=== PATIENT | male | born 1955 | race Caucasian/White ===

== ENCOUNTER 2018-05-01 11:11 | Inpatient (IN) | payer MEDICARE, OTHER ==
[~2018-05-01] VITALS: Ht 172.7 cm; Wt 63.9 kg
[2018-05-01] MEDS ORDERED: piperacillin/tazo 3.375gm/50ml 50 ML IV ONE (11:40)
[2018-05-01] MEDS ORDERED: normal saline 1000ML IV soln IV ONE (11:40)
[2018-05-01] MEDS ORDERED: vancomycin/NS 1 GM ADD-VANTAGE 250 ML IV ONE (11:40)
[2018-05-01 12:19] LABS: BASOPHILS % (AUTO) 0.4 % (0-1); EOSINOPHILS # (AUTO) 0.3 X10'3 (0-0.9); EOSINOPHILS % (AUTO) 2.3 % (0-6); HEMOGLOBIN 11.6 g/dl (14.0-17.9); LYMPHOCYTES % (AUTO) 8.7 % (21-51); MEAN CORPUSCULAR HEMOGLOBIN 32.4 PG (27.0-31.0); MEAN CORPUSCULAR HGB CONC 34.2 % (33.0-36.5); MEAN CORPUSCULAR VOLUME 94.9 FL (78-98); MONOCYTES # (AUTO) 0.7 X10'3 (0-0.9); MONOCYTES % (AUTO) 6.5 % (2-12); NEUTROPHILS # (AUTO) 9.4 X10'3 (1.8-7.7); NEUTROPHILS % (AUTO) 82.1 % (42-75); PLATELET COUNT 254 X10'3 (140-440); RED BLOOD COUNT 3.58 X10'6 (4.70-6.10); RED CELL DISTRIBUTION WIDTH 13.7 % (11.5-14.5); WHITE BLOOD COUNT 11.5 X10'3 (4.5-11.0)
[2018-05-01] MEDS ORDERED: iohexol 300mg/ml 100ml inj. ONE (12:21)
[2018-05-01 12:30] LABS: PARTIAL THROMBOPLASTIN TIME 27 SECONDS (22-32); PROTHROMBIN TIME 10.8 SECONDS (9.0-12.0)
[2018-05-01 12:35] LABS: ALANINE AMINOTRANSFERASE 29 U/L (12-78); ALBUMIN 2.6 G/DL (3.4-5.0); ALBUMIN/GLOBULIN RATIO 0.7 (1.1-1.5); ALKALINE PHOSPHATASE 69 IU/L (46-116); ANION GAP 8 (8-16); ASPARTATE AMINO TRANSFERASE 19 U/L (10-37); BILIRUBIN,TOTAL 0.5 MG/DL (0.1-1.0); BLOOD UREA NITROGEN 8 MG/DL (7-18); BUN/CREATININE RATIO 11.6 (5.4-32.0); CALCIUM 8.3 MG/DL (8.5-10.1); CHLORIDE 101 MMOL/L (99-107); CREATININE 0.69 MG/DL (0.60-1.10); GLUCOSE 106 MG/DL (70-104); MAGNESIUM 1.9 MG/DL (1.5-2.4); POTASSIUM 3.6 MMOL/L (3.5-5.1); SODIUM 136 MMOL/L (135-145); TOTAL CARBON DIOXIDE 27.5 MMOL/L (24-32); TOTAL PROTEIN 6.1 G/DL (6.4-8.2); eGFR > 90 ML/MIN
[2018-05-01 14:08] LABS: CLARITY,URINE CLEAR (Clear); COLOR,URINE YELLOW (Yellow); GLUCOSE, URINE NEGATIVE (Neg); KETONES,URINE NEGATIVE (Neg); LEUKOCYTE ESTERASE ,URINE NEGATIVE (Neg); NITRITES, URINE NEGATIVE (Neg); OCCULT BLOOD,URINE NEGATIVE (Neg); PROTEIN,URINE NEGATIVE (Neg); UROBILINOGEN,URINE 0.2 E.U/dL (0.2-1.0)
[2018-05-01 14:10] LABS: UA COLLECTION TYPE URINAL
[2018-05-01] MEDS ORDERED: magnesium Cl slow-release 64mg tablet PO PRN (15:30)
[2018-05-01] MEDS ORDERED: acetaminophen 325mg tablet PO PRN (15:30)
[2018-05-01] MEDS ORDERED: potassium Cl 40MEQ/NS 500ml 500 ML IV PRN ×2 (15:30)
[2018-05-01] MEDS ORDERED: magnesium 4gm in 100ml NS 100 ML IV PRN (15:30)
[2018-05-01] MEDS ORDERED: ondansetron/PF 4mg/2ml inj IV PRN (15:30)
[2018-05-01] MEDS ORDERED: potassium Cl 20 mEq SR tablet PO PRN ×2 (15:30)
[2018-05-01] MEDS ORDERED: magnesium 1gm/100ml D5W IVPB 100 ML IV PRN (15:30)
[2018-05-01] MEDS: normal saline 1000ml 1,000 ML IV SCH ×2 (16:06→17:47)
[2018-05-01] MEDS ORDERED: GABA-532 PO (17:08)
[2018-05-01] MEDS ORDERED: OMEP20TA5 PO (17:08)
[2018-05-01] MEDS ORDERED: NAPR-56 PO (17:08)
[2018-05-01] MEDS ORDERED: TRAM50TA2 PO (17:08)
[2018-05-01 17:35] VITALS: BP 109/70
[2018-05-01] MEDS: HYDROcodone/acetaminophen 5mg/325mg tablet PO PRN (17:50)
[2018-05-01] MEDS: vancomycin/NS 1 GM ADD-VANTAGE 250 ML IV SCH (19:25)
[2018-05-01] MEDS: heparin, porcine 5000 units/ml vial SQ SCH (19:31)
[2018-05-01] MEDS: piperacillin/tazo 3.375gm/50ml 50 ML IV SCH (19:38)
[2018-05-01 22:00] VITALS: BP 97/60
[2018-05-02] MEDS: piperacillin/tazo 3.375gm/50ml 50 ML IV SCH ×4 (02:33→19:41)
[2018-05-02] MEDS: HYDROcodone/acetaminophen 5mg/325mg tablet PO PRN (02:37)
[2018-05-02] MEDS: vancomycin/NS 1 GM ADD-VANTAGE 250 ML IV SCH ×2 (03:45→12:05)
[2018-05-02 05:29] LABS: BASOPHILS % (AUTO) 0.3 % (0-1); EOSINOPHILS # (AUTO) 0.2 X10'3 (0-0.9); EOSINOPHILS % (AUTO) 3.3 % (0-6); HEMATOCRIT 30.9 % (42.0-52.0); HEMOGLOBIN 10.5 g/dl (14.0-17.9); LYMPHOCYTES # (AUTO) 1.1 X10'3 (1.1-4.8); LYMPHOCYTES % (AUTO) 15.6 % (21-51); MEAN CORPUSCULAR VOLUME 94.1 FL (78-98); MEAN PLATELET VOLUME 7.4 FL (7.4-10.4); MONOCYTES # (AUTO) 0.7 X10'3 (0-0.9); MONOCYTES % (AUTO) 10.5 % (2-12); NEUTROPHILS % (AUTO) 70.3 % (42-75); PLATELET COUNT 236 X10'3 (140-440); RED BLOOD COUNT 3.28 X10'6 (4.70-6.10); RED CELL DISTRIBUTION WIDTH 13.7 % (11.5-14.5); WHITE BLOOD COUNT 7.1 X10'3 (4.5-11.0)
[2018-05-02 05:43] LABS: ALBUMIN 2.1 G/DL (3.4-5.0); ANION GAP 4 (8-16); CALCIUM 7.9 MG/DL (8.5-10.1); CHLORIDE 105 MMOL/L (99-107); CREATININE 0.68 MG/DL (0.60-1.10); GLUCOSE 90 MG/DL (70-104); MAGNESIUM 1.6 MG/DL (1.5-2.4); POTASSIUM 3.7 MMOL/L (3.5-5.1); SODIUM 138 MMOL/L (135-145); TOTAL CARBON DIOXIDE 28.8 MMOL/L (24-32); eGFR > 90 ML/MIN
[2018-05-02 06:18] LABS: BLOOD UREA NITROGEN 6 MG/DL (7-18); BUN/CREATININE RATIO 8.8 (5.4-32.0)
[2018-05-02 06:54] VITALS: BP 116/70
[2018-05-02] MEDS ORDERED: K and/or MAG REPLACEMENT MC SCH (08:00)
[2018-05-02] MEDS: heparin, porcine 5000 units/ml vial SQ SCH ×2 (08:14→19:42)
[2018-05-02 10:00] VITALS: BP 118/74
[2018-05-02] MEDS ORDERED: VANCOMYCIN LEVEL IV NR (11:30)
[2018-05-02] MEDS ORDERED: ALPRAZolam 0.25mg tablet PO ONE (11:50)
[2018-05-02 17:00] VITALS: BP 112/60
[2018-05-02] MEDS: lactobacillus rhamnosus 10,000 MMU CELLS/CAPSULE PO SCH (19:42)
[2018-05-02] MEDS ORDERED: traMADol 50MG tablet PO PRN (20:00)
[2018-05-02] MEDS: gabapentin 300mg capsule PO SCH (20:36)
[2018-05-02] MEDS: vancomycin inj 1,250 MG in normal saline 250ml IV soln 250 ML IV SCH (20:37)
[2018-05-02 22:00] VITALS: BP 125/74
[2018-05-03] MEDS: piperacillin/tazo 3.375gm/50ml 50 ML IV SCH ×2 (01:35→08:11)
[2018-05-03] MEDS: HYDROcodone/acetaminophen 5mg/325mg tablet PO PRN ×2 (01:41→05:56)
[2018-05-03] MEDS: vancomycin inj 1,250 MG in normal saline 250ml IV soln 250 ML IV SCH (03:47)
[2018-05-03 05:11] LABS: BASOPHILS % (AUTO) 0.5 % (0-1); EOSINOPHILS # (AUTO) 0.2 X10'3 (0-0.9); EOSINOPHILS % (AUTO) 3.3 % (0-6); HEMATOCRIT 32.4 % (42.0-52.0); HEMOGLOBIN 11.1 g/dl (14.0-17.9); LYMPHOCYTES # (AUTO) 1.4 X10'3 (1.1-4.8); LYMPHOCYTES % (AUTO) 22.7 % (21-51); MEAN CORPUSCULAR HEMOGLOBIN 32.3 PG (27.0-31.0); MEAN CORPUSCULAR HGB CONC 34.4 % (33.0-36.5); MEAN CORPUSCULAR VOLUME 93.7 FL (78-98); MEAN PLATELET VOLUME 7.4 FL (7.4-10.4); MONOCYTES # (AUTO) 0.6 X10'3 (0-0.9); MONOCYTES % (AUTO) 10.2 % (2-12); NEUTROPHILS # (AUTO) 3.8 X10'3 (1.8-7.7); NEUTROPHILS % (AUTO) 63.3 % (42-75); PLATELET COUNT 306 X10'3 (140-440); RED BLOOD COUNT 3.45 X10'6 (4.70-6.10); RED CELL DISTRIBUTION WIDTH 13.6 % (11.5-14.5); WHITE BLOOD COUNT 6.1 X10'3 (4.5-11.0)
[2018-05-03 05:16] LABS: ALBUMIN 2.2 G/DL (3.4-5.0); ANION GAP 4 (8-16); BLOOD UREA NITROGEN 7 MG/DL (7-18); BUN/CREATININE RATIO 8.1 (5.4-32.0); CALCIUM 8.5 MG/DL (8.5-10.1); CHLORIDE 104 MMOL/L (99-107); CREATININE 0.86 MG/DL (0.60-1.10); GLUCOSE 90 MG/DL (70-104); MAGNESIUM 1.8 MG/DL (1.5-2.4); POTASSIUM 4.2 MMOL/L (3.5-5.1); SODIUM 139 MMOL/L (135-145); TOTAL CARBON DIOXIDE 30.6 MMOL/L (24-32); eGFR 90 ML/MIN
[2018-05-03 06:00] VITALS: BP 109/64
[2018-05-03] MEDS ORDERED: pantoprazole 40mg Tablet.DR PO SCH (07:30)
[2018-05-03] MEDS: gabapentin 300mg capsule PO SCH (08:11)
[2018-05-03] MEDS: lactobacillus rhamnosus 10,000 MMU CELLS/CAPSULE PO SCH (08:11)
[2018-05-03] MEDS: heparin, porcine 5000 units/ml vial SQ SCH (08:12)
[2018-05-03] MEDS ORDERED: LIDOcaine 2% 5ml jelly TOP ONE (09:00)
[2018-05-03] MEDS ORDERED: LIDOcaine 1%/PF 5ML 10 MG/ML VIAL SQ ONE (09:00)
[2018-05-03 10:00] VITALS: BP 112/67
[2018-05-03] MEDS ORDERED: VANCOMYCIN LEVEL IV NR (19:30)
== END 2018-05-03 12:00 | disposition left against medical advice (07) | DRG 300 ==
LOC: ER 11:13 → ED HOLD 15:27 → ORTHO 4S 17:30
PROVIDERS: ADMIT Internal Medicine; ATTEND Internal Medicine
PROC: BQ2R1ZZ Computerized Tomography (CT Scan) of Right Lower Extremity using Low Osmolar Contrast (ICD-10-PCS; principal; 2018-05-01)
DX: I96 Gangrene, not elsewhere classified (principal); L03.116 Cellulitis of left lower limb; L97.929 Non-pressure chronic ulcer of unspecified part of left lower leg with unspecified severity; D64.9 Anemia, unspecified; Z53.21 Procedure and treatment not carried out due to patient leaving prior to being seen by health care provider; F12.90 Cannabis use, unspecified, uncomplicated; Z59.0 Homelessness
CPT/HCPCS: 36415; 71045; 73701; 80048; 80053; 80202; 81003; 83605; 83735; 84145; 85025; 85610; 85730; 87040; 87070; 87075; 87076; 87077; 87185; 87186; 96365; 96366; 96368; 99285; A6209; A6255; A6446; A6449; J1644; J2001; J2543; J3370; J7030; Q9967

== ENCOUNTER 2018-09-27 11:33 | Emergency (ER) | payer MEDICARE, OTHER ==
[~2018-09-27] VITALS: Ht 172.7 cm; Wt 69.0 kg
[~2018-09-27 11:33] MED LIST: GABA-532 PO; NAPR-56 PO; OMEP20TA5 PO; TRAM50TA2 PO
--- NOTE | 2018-09-27 12:57 | NUR ---
PT REPORTS A SIGNIFICANT DECREASE IN PAIN AND INCREASED RANGE OF MOTION IN RT SHOULDER. DISCUSSED PT WITH LILLY FIERRO TO REPEAT SHOULDER XRAY. PLACED ORDER.
[2018-09-27 12:59] VITALS: BP 134/75
[2018-09-27] MEDS ORDERED: ibuprofen tablet 400 MG TABLET PO ONE (13:30)
== END 2018-09-27 14:14 | disposition home or self-care (01) ==
LOC: ER 11:34
DX: S43.004A Unspecified dislocation of right shoulder joint, initial encounter (principal); Z98.890 Other specified postprocedural states; Z79.899 Other long term (current) drug therapy; X58.XXXA Exposure to other specified factors, initial encounter; Y93.89 Activity, other specified; Y92.89 Other specified places as the place of occurrence of the external cause; Y99.8 Other external cause status
CPT/HCPCS: 23650; 73030; 99284

== ENCOUNTER 2019-04-24 12:37 | Day surgery (SDC) | payer MEDICARE, MEDICAID ==
[2019-04-18 14:58] LABS: BASOPHILS % (AUTO) 0.4 % (0-1); CLARITY,URINE CLEAR (Clear); COLOR,URINE YELLOW (Yellow); EOSINOPHILS # (AUTO) 0.2 X10'3 (0-0.9); EOSINOPHILS % (AUTO) 2.2 % (0-6); GLUCOSE, URINE NEGATIVE (Neg); KETONES,URINE 40 mg/dl (Neg); LEUKOCYTE ESTERASE ,URINE NEGATIVE (Neg); LYMPHOCYTES # (AUTO) 1.3 X10'3 (1.1-4.8); LYMPHOCYTES % (AUTO) 16.6 % (21-51); MEAN CORPUSCULAR HEMOGLOBIN 33.5 PG (27.0-31.0); MEAN CORPUSCULAR HGB CONC 34.3 g/dL (33.0-36.5); MEAN CORPUSCULAR VOLUME 97.8 FL (78-98); MEAN PLATELET VOLUME 7.1 FL (7.4-10.4); MONOCYTES # (AUTO) 0.7 X10'3 (0-0.9); MONOCYTES % (AUTO) 8.3 % (2-12); NEUTROPHILS # (AUTO) 5.9 X10'3 (1.8-7.7); NEUTROPHILS % (AUTO) 72.5 % (42-75); NITRITES, URINE NEGATIVE (Neg); OCCULT BLOOD,URINE NEGATIVE (Neg); PRE OP HEMATOCRIT 40.7 % (42.0-52.0); PRE OP PLATELET COUNT 262 X10'3 (140-440); PROTEIN,URINE TRACE mg/dl (Neg); RED BLOOD COUNT 4.16 X10'6 (4.70-6.10); RED CELL DISTRIBUTION WIDTH 13.8 % (11.5-14.5)
[2019-04-18 14:59] LABS: UA COLLECTION TYPE CLN CATCH MIDSTREAM
[2019-04-18 15:05] LABS: MUCUS STRANDS MANY /LPF (Neg); SQUAMOUS EPITHELIAL CELL,UR FEW /LPF (FEW)
[2019-04-18 15:06] LABS: BACTERIA,URINE FEW /HPF (Neg); WBC,URINE 0-4 /HPF (0-4)
[2019-04-18 15:12] LABS: ALBUMIN 4.3 G/DL (3.4-5.0); ALBUMIN/GLOBULIN RATIO 1.2 (1.1-1.5); ALKALINE PHOSPHATASE 69 IU/L (46-116); BLOOD UREA NITROGEN 17 MG/DL (7-18); BUN/CREATININE RATIO 17.5 (5.4-32.0); CHLORIDE 106 MMOL/L (99-107); CREATININE 0.97 MG/DL (0.60-1.10); PRE OP ALT 20 U/L (30-65); PRE OP ANION GAP 10 (8-16); PRE OP AST 25 U/L (10-37); PRE OP BILIRUB, TOTAL 1.1 MG/DL (0.0-1.0); PRE OP GLUCOSE 96 MG/DL (70-104); PRE OP SODIUM 143 MMOL/L (135-145); TOTAL CARBON DIOXIDE 27.1 MMOL/L (24-32); TOTAL PROTEIN 7.8 G/DL (6.4-8.2); eGFR 78 ML/MIN
[2019-04-24] VITALS (8 sets, daily range): BP systolic 108–137; BP diastolic 71–90
[~2019-04-24] VITALS: Ht 170.2 cm; Wt 67.0 kg
[~2019-04-24 12:37] MED LIST changes: -TRAM50TA2 PO; +cefazolin/dext.iso 2gm/100ml 100 ML IV ONE; +famotidine 20mg tablet PO ONE; +ringers solution, lacted 1,000 ML IV SCH
[2019-04-24] MEDS ORDERED: ceFAZolin 1000mg inj ONE (15:59)
[2019-04-24] MEDS ORDERED: BUPIVAcaine/PF 2.5 mg/ml (0.25%) 30ml vial ONE (16:00)
[2019-04-24] MEDS ORDERED: dexamethasone sod phosphate 10mg/ml inj ONE (16:01)
[2019-04-24] MEDS ORDERED: desflurane 240ml liquid inh. IH ONE (16:01)
[2019-04-24] MEDS ORDERED: rocuronium 10mg/ml inj IV ONE (16:01)
[2019-04-24] MEDS ORDERED: midazolam 2 mg/2 ml injection ONE (16:02)
[2019-04-24] MEDS ORDERED: fentaNYL /PF 50mcg/ml 5ml ampule ONE (16:06)
[2019-04-24] MEDS ORDERED: proCHLORperazine 10 MG/2 ml inj IV PRN (16:25)
[2019-04-24] MEDS ORDERED: meperidine/PF 25mg/ml syringe IV PRN ×2 (16:25)
[2019-04-24] MEDS ORDERED: ondansetron/PF 4mg/2ml inj IV PRN (16:25)
[2019-04-24] MEDS ORDERED: ringers solution, lacted 1,000 ML IV SCH (16:25)
[2019-04-24] MEDS ORDERED: morphine 4 MG/ML inj SYRINge IV PRN ×2 (16:25)
[2019-04-24] MEDS ORDERED: LIDOcaine 2% (20mg/ml) 5ml vial ONE (17:14)
[2019-04-24] MEDS ORDERED: propofol inj 20 ML IV ONE (17:14)
[2019-04-24] MEDS ORDERED: ketorolac trometh. 30mg/ml inj. ONE (17:14)
[2019-04-24] MEDS ORDERED: glycopyrrolate 0.2mg/ml inj ONE (17:17)
[2019-04-24] MEDS ORDERED: metoprolol tartrate 1mg/ml inj IV ONE (17:17)
[2019-04-24] MEDS ORDERED: neostigmine methylsulfate 1 MG/ML 10ml vial ONE (17:17)
--- NOTE | 2019-04-24 17:25 | NUR ---
Received from OR via [facility] , accompanied by Anesthesiologist TIMOTHY and report given by Anesthesiolgist. PATIENT WITH 20G PIV IN RIGHT UE, 5 ABDOMINIAL BANDAIDS PRESENT ALL CDI. VSS. 10L MASK ON WITH 100% SATURATIONS. DENIES PAIN AT THIS TIME. LR RUNNING AT 100. Addendum: 04/24/19 at 1735 by Sahil Caruso RN, RN Amended: Links added.
[2019-04-24] MEDS: meperidine/PF 25mg/ml syringe IV PRN ×2 (17:46→18:11)
--- NOTE | 2019-04-24 18:35 | NUR ---
ALL DC CRITERIA HAS BEEN MET. IV TAKEN OUT WITHOUT COMPLICATIONS. ALL INSTRUCTIONS COVERED AND ALL QUESTIONS ANSWERED. DRESSINGS CDI. OUT VIA WHEELCHAIR TO PERSONAL VEHICLE WHERE PATIENT WAS SECURED IN AND DRIVEN HOME BY FAMILY. DRESSINGS STILL CDI. ABDOMINAL BINDER IN PLACE. ABLE TO DRESS AND AMBULATE TO WHEELCHAIR WITH SBA. SIG OTHERS FRIEND TO DRIVE PATIENT HOME. OUT VIA WHEELCHAIR. MEDS WITH SIG OTHER. Addendum: 04/24/19 at 1846 by Sahil Caruso RN, RN Amended: Links added.
== END 2019-04-24 18:35 | disposition home or self-care (01) ==
LOC: PAS 12:37
PROVIDERS: ATTEND Surgery
DX: K43.9 Ventral hernia without obstruction or gangrene (principal); M19.90 Unspecified osteoarthritis, unspecified site; F32.9 Major depressive disorder, single episode, unspecified; G62.9 Polyneuropathy, unspecified; Z98.890 Other specified postprocedural states; F17.290 Nicotine dependence, other tobacco product, uncomplicated; F15.90 Other stimulant use, unspecified, uncomplicated; Z96.651 Presence of right artificial knee joint; Z96.611 Presence of right artificial shoulder joint; Z79.899 Other long term (current) drug therapy
CPT/HCPCS: 36415; 49652; 71046; 80053; 81001; 82948; 85025; 93005; C1758; C1781; J0690; J1885; J2001; J2175; J2250; J2704; J2710; J3010; J3490; J7120; A4215; A4618; A7000; J1100

== ENCOUNTER 2019-09-18 14:00 | Inpatient (IN) | payer MEDICARE, MEDICAID ==
[2019-09-11 15:25] LABS: ALBUMIN/GLOBULIN RATIO 1.3 (1.1-1.5); ALKALINE PHOSPHATASE 99 IU/L (46-116); BLOOD UREA NITROGEN 14 MG/DL (7-18); BUN/CREATININE RATIO 14.6 (5.4-32.0); CALCIUM 8.5 MG/DL (8.5-10.1); CHLORIDE 106 MMOL/L (99-107); CREATININE 0.96 MG/DL (0.60-1.10); PRE OP ALT 22 U/L (30-65); PRE OP AST 28 U/L (10-37); PRE OP BILIRUB, TOTAL 0.4 MG/DL (0.0-1.0); PRE OP GLUCOSE 90 MG/DL (70-104); TOTAL CARBON DIOXIDE 29.2 MMOL/L (24-32); TOTAL PROTEIN 7.1 G/DL (6.4-8.2); eGFR 79 ML/MIN
[2019-09-11 15:34] LABS: BASOPHILS # (AUTO) 0.1 X10'3 (0-0.2); BASOPHILS % (AUTO) 0.9 % (0-1); EOSINOPHILS # (AUTO) 0.3 X10'3 (0-0.9); EOSINOPHILS % (AUTO) 4.1 % (0-6); LYMPHOCYTES # (AUTO) 1.7 X10'3 (1.1-4.8); LYMPHOCYTES % (AUTO) 24.3 % (21-51); MEAN CORPUSCULAR HEMOGLOBIN 34.6 PG (27.0-31.0); MEAN CORPUSCULAR HGB CONC 34.8 g/dL (33.0-36.5); MEAN CORPUSCULAR VOLUME 99.6 FL (78-98); MEAN PLATELET VOLUME 7.7 FL (7.4-10.4); MONOCYTES # (AUTO) 0.6 X10'3 (0-0.9); MONOCYTES % (AUTO) 8.7 % (2-12); NEUTROPHILS # (AUTO) 4.4 X10'3 (1.8-7.7); PRE OP HEMATOCRIT 40.6 % (42.0-52.0); PRE OP HEMOGLOBIN 14.1 g/dL (14.0-17.9); PRE OP PLATELET COUNT 282 X10'3 (140-440); RED BLOOD COUNT 4.07 X10'6 (4.70-6.10); RED CELL DISTRIBUTION WIDTH 14.4 % (11.5-14.5)
[2019-09-12 16:31] LABS: PRE OP ANION GAP 8 (8-16); PRE OP SODIUM 143 MMOL/L (135-145)
[~2019-09-18] VITALS: Ht 167.6 cm; Wt 68.7 kg
[~2019-09-18 14:00] MED LIST changes: -cefazolin/dext.iso 2gm/100ml 100 ML IV ONE; -famotidine 20mg tablet PO ONE; -ringers solution, lacted 1,000 ML IV SCH
[2019-09-19] MEDS ORDERED: ringers solution, lacted 1,000 ML IV SCH (05:00)
[2019-09-19] MEDS ORDERED: famotidine 10mg tablet PO ONE (05:30)
[2019-09-19] MEDS ORDERED: MESSAGE TO NURSING PO ONE (05:30)
[2019-09-19 09:45] VITALS: BP 123/80
[2019-09-19] MEDS ORDERED: tranexamic acid inj. 1,000 MG in normal saline 100ml IV soln 100 ML IV ONE (10:19)
[2019-09-19] MEDS ORDERED: VANCOMYCIN INJ 1000 MG in NORMAL SALINE 250ml IV.SOLN IV ONE (10:19)
[2019-09-19] MEDS ORDERED: cefazolin/dext.iso 2gm/50ml 50 ML IV ONE (10:19)
[2019-09-19] MEDS ORDERED: cefazolin/dext.iso 2gm/100ml 100 ML IV ONE (10:25)
[2019-09-19] MEDS ORDERED: mupirocin 2% nasal ointment 1gm UD NS SCH ×2 (10:33→20:00)
--- NOTE | 2019-09-19 11:08 | NUR ---
SURGERY CANCELLED. NEEDED IMPLANTS NOT HERE. OFFICE WILL RESCHEDULE SURGERY.
== END 2019-09-19 11:15 | disposition home or self-care (01) | DRG 561 ==
LOC: EDSTATUS 14:00 → PAS IN 09-19 09:30 → EDSTATUS 09-19 12:30
PROVIDERS: ADMIT Orthopaedic Surgery; ATTEND Orthopaedic Surgery
DX: T84.028A Dislocation of other internal joint prosthesis, initial encounter (principal); Z96.611 Presence of right artificial shoulder joint; M25.311 Other instability, right shoulder; M25.511 Pain in right shoulder; F17.210 Nicotine dependence, cigarettes, uncomplicated; Z72.89 Other problems related to lifestyle
CPT/HCPCS: 36415; 80053; 82948; 85025; 87081; J3370; J7120

== ENCOUNTER 2020-04-30 08:06 | Day surgery (SDC) | payer MEDICARE, MEDICAID ==
[2020-04-22 14:48] LABS: BASOPHILS % (AUTO) 0.5 % (0-1); EOSINOPHILS # (AUTO) 0.1 X10'3 (0-0.9); EOSINOPHILS % (AUTO) 0.8 % (0-6); LYMPHOCYTES # (AUTO) 1.2 X10'3 (1.1-4.8); MEAN CORPUSCULAR HEMOGLOBIN 36.7 PG (27.0-31.0); MEAN CORPUSCULAR HGB CONC 34.3 g/dL (33.0-36.5); MEAN PLATELET VOLUME 7.7 FL (7.4-10.4); MONOCYTES # (AUTO) 0.7 X10'3 (0-0.9); MONOCYTES % (AUTO) 8.2 % (2-12); NEUTROPHILS # (AUTO) 6.1 X10'3 (1.8-7.7); NEUTROPHILS % (AUTO) 75.5 % (42-75); PRE OP HEMATOCRIT 40.2 % (42.0-52.0); PRE OP HEMOGLOBIN 13.8 g/dL (14.0-17.9); PRE OP PLATELET COUNT 176 X10'3 (140-440); RED BLOOD COUNT 3.76 X10'6 (4.70-6.10); RED CELL DISTRIBUTION WIDTH 16.3 % (11.5-14.5)
[2020-04-22 14:53] LABS: CLARITY,URINE SLIGHTLY CLOUDY (Clear); COLOR,URINE YELLOW (Yellow); GLUCOSE, URINE NEGATIVE (Neg); KETONES,URINE TRACE mg/dl (Neg); LEUKOCYTE ESTERASE ,URINE NEGATIVE (Neg); NITRITES, URINE NEGATIVE (Neg); OCCULT BLOOD,URINE NEGATIVE (Neg); PH,URINE 5.5 (4.8-8.0); PROTEIN,URINE TRACE mg/dl (Neg)
[2020-04-22 14:55] LABS: UA COLLECTION TYPE VOIDED
[2020-04-22 15:04] LABS: BACTERIA,URINE 1+ /HPF (Neg); HYALINE CASTS >30 /LPF (NEGATIVE); SQUAMOUS EPITHELIAL CELL,UR FEW /LPF (FEW)
[2020-04-22 15:05] LABS: RBC,URINE 0-2 /HPF (0-2); WBC,URINE 0-4 /HPF (0-4)
[2020-04-22 15:18] LABS: ALBUMIN 4.2 G/DL (3.4-5.0); ALBUMIN/GLOBULIN RATIO 1.4 (1.1-1.5); ALKALINE PHOSPHATASE 83 IU/L (46-116); BLOOD UREA NITROGEN 8 MG/DL (7-18); BUN/CREATININE RATIO 8.6 (5.4-32.0); CALCIUM 8.6 MG/DL (8.5-10.1); CHLORIDE 101 MMOL/L (99-107); CREATININE 0.93 MG/DL (0.60-1.10); PRE OP ALT 29 U/L (30-65); PRE OP ANION GAP 11 (8-16); PRE OP AST 48 U/L (10-37); PRE OP BILIRUB, TOTAL 1.1 MG/DL (0.0-1.0); PRE OP GLUCOSE 95 MG/DL (70-104); PRE OP POTASSIUM 3.5 MMOL/L (3.4-5.1); PRE OP SODIUM 137 MMOL/L (135-145); TOTAL PROTEIN 7.2 G/DL (6.4-8.2); eGFR 82 ML/MIN
[~2020-04-30] VITALS: Ht 170.2 cm; Wt 66.8 kg
[2020-04-30] VITALS (8 sets, daily range): BP systolic 120–144; BP diastolic 74–113
[~2020-04-30 08:06] MED LIST changes: +cefazolin/dext.iso 2gm/50ml 50 ML IV ONE; +famotidine 20mg tablet PO ONE; +ringers solution, lacted 1,000 ML IV SCH
[2020-04-30] MEDS ORDERED: sevoflurane 250ml liquid IH ONE (10:32)
[2020-04-30] MEDS ORDERED: fentaNYL/PF 50MCG/1 ML 2ML syringe ONE ×5 (10:35→11:56)
[2020-04-30] MEDS ORDERED: midazolam 2 mg/2 ml injection ONE (10:35)
[2020-04-30] MEDS ORDERED: BUPIVAcaine/PF 2.5 mg/ml (0.25%) 30ml vial ONE (10:50)
[2020-04-30] MEDS ORDERED: bacitracin 15gm ointment TP ONE (10:50)
[2020-04-30] MEDS ORDERED: ondansetron/PF 4mg/2ml inj ONE (11:56)
[2020-04-30] MEDS ORDERED: propofol inj 20 ML IV ONE (11:56)
[2020-04-30] MEDS ORDERED: dexamethasone sod phosphate 4mg/ml inj. ONE (11:56)
[2020-04-30] MEDS ORDERED: glycopyrrolate 0.2mg/ml inj ONE (11:56)
[2020-04-30] MEDS ORDERED: rocuronium 10mg/ml inj IV ONE (11:56)
[2020-04-30] MEDS ORDERED: LIDOcaine 2% (20mg/ml) 5ml vial ONE (11:56)
[2020-04-30] MEDS ORDERED: neostigmine methylsulfate 1 MG/ML 10ml vial ONE (11:56)
[2020-04-30] MEDS ORDERED: ringers solution, lacted 1,000 ML IV SCH (12:01)
[2020-04-30] MEDS ORDERED: proCHLORperazine 10 MG/2 ml inj IV PRN (12:05)
[2020-04-30] MEDS ORDERED: ondansetron/PF 4mg/2ml inj IV PRN (12:05)
[2020-04-30] MEDS ORDERED: meperidine/PF 25mg/ml syringe IV PRN ×3 (12:05)
[2020-04-30] MEDS ORDERED: morphine 2 MG/ML inj. syringe IV PRN (12:05)
[2020-04-30] MEDS ORDERED: morphine 4 MG/ML inj SYRINge IV PRN (12:05)
--- NOTE | 2020-04-30 12:37 | NUR ---
Received from OR via , accompanied by Anesthesiologist DR FIGUEROA and report given by Anesthesiolgist. AWAKENS TO VOICE. VITALS STABLE. DRESSING DI. OTILIO PAIN.
--- NOTE | 2020-04-30 13:47 | NUR ---
AWAKE AND ORIENTED. VITALS STABLE. DRESSING DI. OTILIO PAIN. SURGICAL BOOT ON. HOME WITH A FRIEND AT THIS TIME.
== END 2020-04-30 13:47 | disposition home or self-care (01) ==
LOC: PAS 08:06
PROVIDERS: ATTEND Podiatrist Foot & Ankle Surgery
DX: M19.071 Primary osteoarthritis, right ankle and foot (principal); M89.8X7 Other specified disorders of bone, ankle and foot; M21.611 Bunion of right foot; G89.4 Chronic pain syndrome; F32.9 Major depressive disorder, single episode, unspecified; G89.18 Other acute postprocedural pain; F43.10 Post-traumatic stress disorder, unspecified; Z96.611 Presence of right artificial shoulder joint; Z96.651 Presence of right artificial knee joint; F17.210 Nicotine dependence, cigarettes, uncomplicated; Z72.89 Other problems related to lifestyle; Z85.46 Personal history of malignant neoplasm of prostate; Z20.828 Contact with and (suspected) exposure to other viral communicable diseases; Z88.8 Allergy status to other drugs, medicaments and biological substances; Z79.899 Other long term (current) drug therapy; Z98.890 Other specified postprocedural states
CPT/HCPCS: 28112; 28750; 36415; 64447; 64450; 73620; 76000; 80053; 81001; 82948; 85025; 87635; 93005; A6223; C1713; J1100; J2001; J2250; J2405; J2704; J2710; J3010; J3490; J7120; A4215; A4618; A6253; A6449; A7000

== ENCOUNTER 2020-05-02 20:42 | Emergency (ER) | payer MEDICARE, MEDICAID ==
[~2020-05-02] VITALS: Ht 167.6 cm; Wt 67.6 kg
[~2020-05-02 20:42] MED LIST changes: -cefazolin/dext.iso 2gm/50ml 50 ML IV ONE; -famotidine 20mg tablet PO ONE; -ringers solution, lacted 1,000 ML IV SCH
[2020-05-02 21:25] LABS: BASOPHILS # (AUTO) 0.1 X10'3 (0-0.2); BASOPHILS % (AUTO) 0.5 % (0-1); EOSINOPHILS % (AUTO) 0.4 % (0-6); HEMATOCRIT 33.3 % (42.0-52.0); HEMOGLOBIN 11.7 g/dl (14.0-17.9); LYMPHOCYTES # (AUTO) 1.7 X10'3 (1.1-4.8); LYMPHOCYTES % (AUTO) 16.5 % (21-51); MEAN CORPUSCULAR HEMOGLOBIN 37.8 PG (27.0-31.0); MEAN CORPUSCULAR VOLUME 108.1 FL (78-98); MEAN PLATELET VOLUME 7.5 FL (7.4-10.4); MONOCYTES # (AUTO) 0.8 X10'3 (0-0.9); MONOCYTES % (AUTO) 7.5 % (2-12); NEUTROPHILS # (AUTO) 7.9 X10'3 (1.8-7.7); NEUTROPHILS % (AUTO) 75.1 % (42-75); PLATELET COUNT 153 X10'3 (140-440); RED BLOOD COUNT 3.09 X10'6 (4.70-6.10); RED CELL DISTRIBUTION WIDTH 15.7 % (11.5-14.5); WHITE BLOOD COUNT 10.5 X10'3 (4.5-11.0)
[2020-05-02 21:45] LABS: ALANINE AMINOTRANSFERASE 27 U/L (12-78); ALBUMIN 3.4 G/DL (3.4-5.0); ALBUMIN/GLOBULIN RATIO 0.9 (1.1-1.5); ALKALINE PHOSPHATASE 70 IU/L (46-116); ANION GAP 7 (8-16); ASPARTATE AMINO TRANSFERASE 26 U/L (10-37); BILIRUBIN,TOTAL 0.6 MG/DL (0.1-1.0); BLOOD UREA NITROGEN 11 MG/DL (7-18); CALCIUM 8.4 MG/DL (8.5-10.1); CHLORIDE 98 MMOL/L (99-107); CREATININE 0.92 MG/DL (0.60-1.10); GLUCOSE 96 MG/DL (70-104); POTASSIUM 3.5 MMOL/L (3.5-5.1); SODIUM 133 MMOL/L (135-145); TOTAL CARBON DIOXIDE 27.9 MMOL/L (24-32); eGFR 83 ML/MIN
[2020-05-02 22:01] VITALS: BP 115/74
[2020-05-02 22:12] LABS: D-DIMER 2.55 MG/L FEU (0-0.50)
[2020-05-02] MEDS ORDERED: iohexol 350MG/ML 100ml bottle IV ONE (22:40)
== END 2020-05-03 00:25 | disposition home or self-care (01) ==
LOC: ER 20:43
DX: R07.89 Other chest pain (principal); J98.59 Other diseases of mediastinum, not elsewhere classified; R05 Cough; Z98.890 Other specified postprocedural states; Z72.0 Tobacco use; Z88.8 Allergy status to other drugs, medicaments and biological substances; Z79.899 Other long term (current) drug therapy
CPT/HCPCS: 36415; 71045; 71275; 80053; 83880; 84484; 85025; 85379; 93005; 99285; Q9967

== ENCOUNTER 2020-05-10 09:47 | Emergency (ER) | payer MEDICARE, MEDICAID ==
[~2020-05-10] VITALS: Ht 170.2 cm; Wt 71.5 kg
[2020-05-10 11:27] LABS: BASOPHILS # (AUTO) 0.1 X10'3 (0-0.2); EOSINOPHILS # (AUTO) 0.1 X10'3 (0-0.9); HEMATOCRIT 35.3 % (42.0-52.0); LYMPHOCYTES # (AUTO) 0.9 X10'3 (1.1-4.8); LYMPHOCYTES % (AUTO) 12.8 % (21-51); MEAN CORPUSCULAR HEMOGLOBIN 37.5 PG (27.0-31.0); MEAN CORPUSCULAR HGB CONC 34.1 g/dL (33.0-36.5); MEAN PLATELET VOLUME 6.2 FL (7.4-10.4); MONOCYTES # (AUTO) 0.6 X10'3 (0-0.9); MONOCYTES % (AUTO) 9.1 % (2-12); NEUTROPHILS # (AUTO) 5.4 X10'3 (1.8-7.7); NEUTROPHILS % (AUTO) 76.1 % (42-75); PLATELET COUNT 354 X10'3 (140-440); RED BLOOD COUNT 3.21 X10'6 (4.70-6.10); RED CELL DISTRIBUTION WIDTH 16.4 % (11.5-14.5); WHITE BLOOD COUNT 7.1 X10'3 (4.5-11.0)
[2020-05-10] MEDS ORDERED: ipratropium/albuterol 3ml nebule NEB ONE (11:35)
[2020-05-10] MEDS ORDERED: methylPREDNISolone sod succ 125mg/2ml vial IV ONE (11:35)
[2020-05-10 11:43] LABS: ALANINE AMINOTRANSFERASE 41 U/L (12-78); ALBUMIN 3.4 G/DL (3.4-5.0); ALBUMIN/GLOBULIN RATIO 0.9 (1.1-1.5); ALKALINE PHOSPHATASE 77 IU/L (46-116); ANION GAP 8 (8-16); ASPARTATE AMINO TRANSFERASE 47 U/L (10-37); BILIRUBIN,TOTAL 0.3 MG/DL (0.1-1.0); BLOOD UREA NITROGEN 14 MG/DL (7-18); BUN/CREATININE RATIO 16.1 (5.4-32.0); CALCIUM 8.4 MG/DL (8.5-10.1); CHLORIDE 102 MMOL/L (99-107); CREATININE 0.87 MG/DL (0.60-1.10); GLUCOSE 97 MG/DL (70-104); POTASSIUM 3.9 MMOL/L (3.5-5.1); SODIUM 138 MMOL/L (135-145); TOTAL PROTEIN 7.1 G/DL (6.4-8.2); eGFR 89 ML/MIN
[2020-05-10 11:57] LABS: ANISOCYTOSIS 1+; ELLIPTOCYTES 1+; PLATELET ESTIMATE NORMAL; POLYCHROMASIA FEW; SCHISTOCYTES FEW
[2020-05-10] MEDS ORDERED: HYDR-4383 PO (12:09)
[2020-05-10 12:57] VITALS: BP 105/68
== END 2020-05-10 12:59 | disposition home or self-care (01) ==
LOC: ER 09:48
DX: J98.59 Other diseases of mediastinum, not elsewhere classified (principal); R07.81 Pleurodynia; F17.200 Nicotine dependence, unspecified, uncomplicated; Z98.890 Other specified postprocedural states; Z88.8 Allergy status to other drugs, medicaments and biological substances; Z79.899 Other long term (current) drug therapy
CPT/HCPCS: 36415; 71045; 80053; 83880; 84484; 85025; 85610; 93005; 94640; 96374; 99285; J2930; 85008; 94760

== ENCOUNTER 2021-02-21 21:31 | Emergency (ER) | payer MEDICARE, MEDICAID ==
[~2021-02-21] VITALS: Ht 170.2 cm; Wt 65.0 kg
[~2021-02-21 21:31] MED LIST changes: +HYDR-4383 PO
[2021-02-22] MEDS ORDERED: morphine 4 MG/ML inj SYRINge IV PRN (01:50)
[2021-02-22] MEDS ORDERED: vancomycin/NS 1 GM ADD-VANTAGE 250 ML IV ONE (01:50)
[2021-02-22] MEDS ORDERED: normal saline 1000ML IV soln IVB ONE (01:50)
[2021-02-22] MEDS ORDERED: ondansetron/PF 4mg/2ml inj IV ONE (01:50)
[2021-02-22] MEDS ORDERED: CefTRIAXone 2gm/D5W 50ml BAG 50 ML IV ONE (01:50)
[2021-02-22] MEDS ORDERED: iohexol 300mg/ml 100ml inj. ONE (02:00)
[2021-02-22 02:07] LABS: BASOPHILS # (AUTO) 0.1 X10'3 (0-0.2); BASOPHILS % (AUTO) 0.8 % (0-1); EOSINOPHILS # (AUTO) 0.3 X10'3 (0-0.9); EOSINOPHILS % (AUTO) 2.5 % (0-6); HEMATOCRIT 33.7 % (42.0-52.0); HEMOGLOBIN 11.7 g/dl (14.0-17.9); LYMPHOCYTES # (AUTO) 1.1 X10'3 (1.1-4.8); LYMPHOCYTES % (AUTO) 8.3 % (21-51); MEAN CORPUSCULAR HEMOGLOBIN 36.1 PG (27.0-31.0); MEAN CORPUSCULAR HGB CONC 34.7 g/dL (33.0-36.5); MEAN CORPUSCULAR VOLUME 104.2 FL (78-98); MEAN PLATELET VOLUME 7.2 FL (7.4-10.4); MONOCYTES # (AUTO) 0.9 X10'3 (0-0.9); MONOCYTES % (AUTO) 6.9 % (2-12); NEUTROPHILS # (AUTO) 10.7 X10'3 (1.8-7.7); NEUTROPHILS % (AUTO) 81.5 % (42-75); PLATELET COUNT 290 X10'3 (140-440); RED BLOOD COUNT 3.23 X10'6 (4.70-6.10); WHITE BLOOD COUNT 13.1 X10'3 (4.5-11.0)
[2021-02-22 02:22] LABS: ALANINE AMINOTRANSFERASE 18 U/L (12-78); ALBUMIN/GLOBULIN RATIO 0.8 (1.1-1.5); ALKALINE PHOSPHATASE 67 IU/L (46-116); ANION GAP 8 (8-16); ASPARTATE AMINO TRANSFERASE 12 U/L (10-37); BILIRUBIN,TOTAL 0.5 MG/DL (0.1-1.0); BLOOD UREA NITROGEN 8 MG/DL (7-18); BUN/CREATININE RATIO 9.9 (5.4-32.0); CALCIUM 8.6 MG/DL (8.5-10.1); CHLORIDE 105 MMOL/L (99-107); CREATININE 0.81 MG/DL (0.60-1.10); GLUCOSE 112 MG/DL (70-104); LIPASE 274 U/L (73-393); SODIUM 139 MMOL/L (135-145); TOTAL CARBON DIOXIDE 25.8 MMOL/L (24-32); eGFR > 90 ML/MIN
[2021-02-22 03:06] VITALS: BP 110/70
[2021-02-22] MEDS ORDERED: CEPH-585 PO (04:01)
[2021-02-22] MEDS ORDERED: SULF1TAB49 PO (04:01)
[2021-02-22] MEDS ORDERED: LIDO20SO16 PO (04:02)
== END 2021-02-22 06:49 | disposition home or self-care (01) ==
LOC: ER 21:32
DX: L03.315 Cellulitis of perineum (principal); Z98.890 Other specified postprocedural states; Z85.46 Personal history of malignant neoplasm of prostate; Z88.8 Allergy status to other drugs, medicaments and biological substances; Z79.2 Long term (current) use of antibiotics; Z79.899 Other long term (current) drug therapy
CPT/HCPCS: 36415; 74160; 80053; 83690; 85025; 96365; 96366; 96368; 96375; 99285; J0696; J2405; J3370; J7030; Q9967; 74177; 96367

== ENCOUNTER 2021-07-22 09:03 | Outpatient (CLI) | payer OTHER ==
[~2021-07-22 09:03] MED LIST changes: +CEPH-585 PO; +LIDO20SO16 PO
== END 2021-07-22 23:59 | disposition home or self-care (01) ==
LOC: RAD 09:03
DX: S69.91XA Unspecified injury of right wrist, hand and finger(s), initial encounter (principal); M19.041 Primary osteoarthritis, right hand; X58.XXXA Exposure to other specified factors, initial encounter; Y93.89 Activity, other specified; Y92.89 Other specified places as the place of occurrence of the external cause; Y99.8 Other external cause status
CPT/HCPCS: 73130

== ENCOUNTER 2024-05-29 15:11 | Emergency (ER) | payer OTHER, MEDICARE, MEDICAID ==
[~2024-05-29] VITALS: Ht 170.2 cm; Wt 74.0 kg
[~2024-05-29 15:11] MED LIST changes: -CEPH-585 PO; +OMEP20TA43 PO; -OMEP20TA5 PO
[2024-05-29] MEDS: predniSONE 20 mg tablet PO ONE (16:40)
[2024-05-29] MEDS: HYDROcodone/acetaminophen 5mg/325mg tablet PO ONE (16:40)
[2024-05-29] MEDS ORDERED: HYDR-3965 PO (16:59)
[2024-05-29] MEDS ORDERED: PRED50TA PO (16:59)
[2024-05-29 17:06] VITALS: BP 138/88; PULSE 96; RESP 18; TEMP 97.8; O2SAT 99
== END 2024-05-29 17:07 | disposition home or self-care (01) ==
LOC: ER 15:12
DX: M10.9 Gout, unspecified (principal); Z88.8 Allergy status to other drugs, medicaments and biological substances; Z79.899 Other long term (current) drug therapy; Z98.890 Other specified postprocedural states; Z85.3 Personal history of malignant neoplasm of breast
CPT/HCPCS: 29125; 73130; 99283; J7512